=== PATIENT | male | born 1990 | race African-American/Black ===

== ENCOUNTER → 2022-07-01 | Day surgery (SDC) | payer OTHER ==
[~2022-07-01] VITALS: Ht 182.9 cm; Wt 90.7 kg
[~2022-07-01] MED LIST: CIPROFLOXACIN 400MG/200ML 200 ML IV ONE; KETAMINE HCL 10 ML ONE; MIDAZOLAM HCL 2MG/2ML 2ml VIAL (1mg/ml) ONE; ONDANSETRON HCL 4 MG/2 ML VIAL ONE; PROPOFOL 10 MG/ML 20 ML IV ONE; SODIUM CHLORIDE LOCK 10 ML ONE; fentaNYL CITRATE 100 MCG/2 ML VL ONE
[2022-07-01 10:50] VITALS: BP 129/81
== END | disposition home or self-care (01) ==
LOC: SUR 06:29
PROVIDERS: ATTEND Urology
DX: R31.9 Hematuria, unspecified (principal); Z87.891 Personal history of nicotine dependence; Z20.822 Contact with and (suspected) exposure to COVID-19
CPT/HCPCS: 52000; J0744; J2250; J2405; J2704; J3010